=== PATIENT | male | born 1970 | race American Indian/Alaskan Native ===

== ENCOUNTER 2019-07-20 01:08 | Emergency (ER) | payer BC ==
--- NOTE | 2019-07-20 01:45 | Emergency Department Report ---
ED General Adult HPI - General Chief complaint: Extremity Injury, Lower Stated complaint: LEFT ANKLE PAIN Source: patient Mode of arrival: Ambulatory Limitations: No Limitations - History of Present Illness Initial comments: 48yo BM states that he has L ankle pain that that started tonight. He states that bearing weight causes pain. He rates the pain a 6 out of 10. He states that he took Motrin earlier and now his pain decreased. -: This afternoon Location: left, lower extremity Radiation: non-radiation Severity scale (0 -10): 6 Quality: aching Consistency: constant Improves with: medication Worsens with: movement Associated Symptoms: denies other symptoms Treatments Prior to Arrival: NSAID - Related Data Allergies Allergy/AdvReac Type Severity Reaction Status Date / Time No Known Allergies Allergy Verified 07/20/19 01:13 ED Review of Systems ROS: Stated complaint: LEFT ANKLE PAIN Other details as noted in HPI Constitutional: no symptoms reported Eyes: denies: eye pain, eye discharge, vision change ENT: denies: ear pain, throat pain, dental pain Respiratory: denies: cough, orthopnea, shortness of breath Cardiovascular: denies: chest pain, palpitations Endocrine: denies: excessive sweating, flushing, intolerance to cold Gastrointestinal: denies: abdominal pain, nausea, vomiting Genitourinary: denies: urgency, dysuria, frequency Musculoskeletal: as per HPI Skin: denies: rash, lesions, change in color Neurological: denies: headache, weakness, numbness Psychiatric: denies: anxiety, depression Hematological/Lymphatic: denies: easy bleeding, easy bruising, swollen glands ED Past Medical Hx - Past Medical History Previous Medical History?: No Hx Hypertension: No Hx CVA: No Hx Heart Attack/AMI: No Hx Congestive Heart Failure: No Hx Diabetes: No Hx Deep Vein Thrombosis: No Hx Pulmonary Embolism: No Hx GERD: No Hx Liver Disease: No Hx Renal Disease: No Hx of Cancer: No Hx Sickle Cell Disease: No Hx Arthritis: No Hx Headaches / Migraines: No - Surgical History Past Surgical History?: No - Social History Smoking Status: Current Some Day Smoker Substance Use Type: None ED Physical Exam - General Limitations: No Limitations General appearance: alert, in no apparent distress - Head Head exam: Present: atraumatic, normocephalic - Eye Eye exam: Present: normal appearance, PERRL, EOMI - ENT ENT exam: Present: normal exam, normal orophraynx, mucous membranes moist - Neck Neck exam: Present: normal inspection - Respiratory Respiratory exam: Present: normal lung sounds bilaterally. Absent: respiratory distress, wheezes - Cardiovascular Cardiovascular Exam: Present: regular rate, normal rhythm, normal heart sounds - GI/Abdominal GI/Abdominal exam: Present: soft. Absent: distended, tenderness - Rectal Rectal exam: Present: deferred - Expanded Lower Extremity Exam Left Lower Leg exam: Present: normal inspection, full ROM Ankle exam: Present: full ROM, tenderness (present with plantar flexion and palpation on L ankle lateral side), swelling (Lateral side of L ankle has mild swelling present) Foot/Toe exam: Present: normal inspection, full ROM ED Medical Decision Making - Radiology Data Radiology results: report reviewed Patient: AC KEARNEY MR#: [id number] : 1970 Acct:[id number] Age/Sex: 48 / M ADM Date: 07/20/19 Loc: ED Attending Dr: Ordering Physician: ED MD AMADA Date of Service: 07/20/19 Procedure(s): XR ankle 3+V LT Accession Number(s): [id number] cc: ED MD AMADA Fluoro Time In Minutes: Left ankle 3 views INDICATION: Left ankle pain following injury IMPRESSION: Small ankle effusion. No fracture or subluxation appreciated. Signer Name: Yovany Kent MD Signed: 07/20/2019 1:39 AM Workstation Name: [id number] Transcribed By: BC Dictated By: Yovany Kent MD Electronically Authenticated By: Yovany Kent MD Signed Date/Time: 07/20/19138 DD/ 8 TD/TT: - Medical Decision Making 48yo BM states that he has L ankle pain that that started tonight. He states that bearing weight causes pain. He rates the pain a 6 out of 10. He states that he took Motrin earlier and now his pain decreased. X-ray results revealed a small ankle effusion with no evidence of fracture. Pt was instructed to continue RICE, NSAIDs as needed and f/u with PCP. Critical care attestation.: If time is entered above; I have spent that time in minutes in the direct care of this critically ill patient, excluding procedure time. ED Disposition Clinical Impression: Left ankle effusion Disposition: DC-01 TO HOME OR SELFCARE Is pt being admited?: No Does the pt Need Aspirin: No Condition: Stable Instructions: Osteoarthritis (ED), RICE Therapy (ED) Additional Instructions: Pt was instructed to continue RICE, NSAIDs as needed and f/u with PCP. Referrals: [facility] [Outside] - 3-5 Days Time of Disposition: 02:22
== END 2019-07-20 02:34 | disposition home or self-care (01) ==
LOC: ED 01:08
DX: M25.472 Effusion, left ankle (principal); F17.200 Nicotine dependence, unspecified, uncomplicated